=== PATIENT | male | born 1980 | race African-American/Black ===

== ENCOUNTER 2018-06-07 00:57 | Observation (INO) | payer BC ==
[2018-06-07] MEDS ORDERED: NA CHLORIDE 0.9% 1,000 ML ONE (01:36)
--- NOTE | 2018-06-07 02:02 | ER ---
Nurse's Notes [facility] Name: Prashanth Reardon Age: 37 yrs Sex: Male : 1980 Arrival Date: 06/07/2018 Time: 00:59 Bed 20 Private MD: Nixon Mayes Diagnosis: Multiple abscesses left groin. Failed outpatient therapy Presentation: 06/07 01:10 Presenting complaint: Patient states: he has a rash on his left groin since the first bb of Jun he was seen at [facility] on the and dx with bacterial folliculitis and given Mupirocin ointment but he is still having pain of 10/10. Transition of care: patient was not received from another setting of care. Onset of symptoms was June 02, 2018. Risk Assessment: Do you want to hurt yourself or someone else? Patient reports no desire to harm self or others. Initial Sepsis Screen: Does the patient meet any 2 criteria? No. Patient's initial sepsis screen is negative. Does the patient have a suspected source of infection? No. Patient's initial sepsis screen is negative. Care prior to arrival: None. 01:10 Method Of Arrival: Ambulatory bb 01:10 Acuity: SAMINA 5 bb Historical: - Allergies: 01:14 lisinopril; bb - Home Meds: 01:14 Unable to obtain [Active]; bb - PMHx: 01:14 Hypertension; Sleep Apnea; bb - PSHx: 01:14 None; bb - Immunization history:: Adult Immunizations unknown. - Social history:: Smoking status: Patient uses tobacco products, smokes one-half pack cigarettes per day, Patient uses alcohol, occasionally. street drugs, cocaine, phencyclidine. - Ebola Screening: : No symptoms or risks identified at this time. Screenin:17 Abuse screen: Denies threats or abuse. Nutritional screening: No deficits noted. ea Tuberculosis screening: No symptoms or risk factors identified. Fall Risk None identified. Assessment: 01:13 General: Appears uncomfortable, Behavior is appropriate for age. Pain: Complains of ea pain in groin, right femoral area and left femoral area. Neuro: Level of Consciousness is awake, alert, obeys commands, Oriented to person, place, time, situation. Cardiovascular: Patient's skin is warm and dry. Respiratory: Airway is patent Respiratory effort is even, unlabored, Respiratory pattern is regular, symmetrical. Derm: multiple ingrown hairs noted to groin area. 02:30 Reassessment: Patient and/or family updated on plan of care and expected duration. Pain ea level reassessed. Patient is alert, oriented x 3, equal unlabored respirations, skin warm/dry/pink. 03:24 Reassessment: Patient and/or family updated on plan of care and expected duration. Pain ea level reassessed. Patient is alert, oriented x 3, equal unlabored respirations, skin warm/dry/pink. 03:50 Reassessment: Report called to Avani TREJO on second floor. ea Vital Signs: 01:14 BP 136 / 97; Pulse 101; Resp 20 S; Temp 98.6(O); Pulse Ox 95% on R/A; Weight 167.83 kg bb (R); Height 6 ft. 2 in. (187.96 cm) (R); Pain 10/10; 02:45 BP 122 / 85; Pulse 76; Resp 20; Pulse Ox 97% ; ea 03:38 BP 140 / 76; Pulse 95; Resp 18 S; Temp 98; Pulse Ox 97% ; Pain 0/10; ea 01:14 Body Mass Index 47.50 (167.83 kg, 187.96 cm) bb ED Course: 00:59 Patient arrived in ED. am2 00:59 Nixon Mayes MD is Private Physician. am2 01:10 Jess Rene, NEIL is Primary Nurse. ea 01:12 Triage completed. bb 01:14 Arm band placed on Patient placed in an exam room, on a stretcher, on pulse oximetry. bb 01:17 Patient has correct armband on for positive identification. Bed in low position. Call ea light in reach. Side rails up X 1. 01:19 Marshal Cronin MD is Attending Physician. pkl 01:40 Inserted saline lock: 20 gauge in right antecubital area, using aseptic technique. ea Blood collected. 02:01 Terrance Varma MD is Hospitalizing Provider. pkl 03:27 No provider procedures requiring assistance completed. ea 03:36 Patient admitted, IV remains in place. ea Administered Medications: 01:54 Drug: NS 0.9% 1000 ml Route: IV; Rate: 1000 ml; Site: right antecubital; ea 03:24 Follow up: IV Status: Completed infusion; IV Intake: 1000ml ea 03:10 Drug: morphine 4 mg Route: IVP; Site: right antecubital; ea 04:01 Follow up: Response: No adverse reaction; Marked relief of symptoms; Pain is decreased ea 03:10 Drug: Zofran 4 mg Route: IVP; Site: right antecubital; ea 04:01 Follow up: Response: No adverse reaction; Marked relief of symptoms ea 03:23 Drug: Zosyn 3.375 grams Route: IVPB; Infused Over: 60 mins; Site: right forearm; ea 04:02 Follow up: Response: No adverse reaction; IV Status: Infusion continued upon admission ea Intake: 03:24 IV: 1000ml; Total: 1000ml. ea Outcome: 02:02 Decision to Hospitalize by Provider. pkl 03:31 Instructed on the need for admit. ea 03:37 Condition: stable ea 04:08 Admitted to Med/surg accompanied by nurse, room 210, with chart, Report called to Avani gomez RN on second floor 04:34 Patient left the ED. ea Signatures: Marshal Cronin MD MD pkl Ballard, Brenda, RN RN Penelope Devlin Elena RN RN patricia Corrections: (The following items were deleted from the chart) 03:29 02:00 Inserted saline lock: 20 gauge in right antecubital area, using aseptic ea technique. Blood collected. ea 03:50 03:38 BP 140 / 76; Pulse 95bpm; Resp 92bpm; Pulse Ox 97%; Temp 98F; Pain 0/10; ea ea
--- NOTE | 2018-06-07 02:02 | EDPHYS ---
Physician Documentation [facility] Name: Prashanth Reardon Age: 37 yrs Sex: Male : 1980 Arrival Date: 06/07/2018 Time: 00:59 Bed 20 Private MD: Nixon Mayes ED Physician Marshal Cronin HPI: 06/07 01:54 This 37 yrs old Black Male presents to ER via Ambulatory with complaints of Skin pkl Sore(s). 01:54 The patient presents with an abscess of the left groin. Description: fluctuant, pkl swollen, Multiple abscesses. Onset: The symptoms/episode began/occurred 1 week(s) ago. Seen at [facility] 5 days ago. Given antibiotic ointment. Not better.. Historical: - Allergies: 01:14 lisinopril; bb - Home Meds: :14 Unable to obtain [Active]; bb - PMHx: 01:14 Hypertension; Sleep Apnea; bb - PSHx: 01:14 None; bb - Immunization history:: Adult Immunizations unknown. - Social history:: Smoking status: Patient uses tobacco products, smokes one-half pack cigarettes per day, Patient uses alcohol, occasionally. street drugs, cocaine, phencyclidine. - Ebola Screening: : No symptoms or risks identified at this time. ROS: 01:54 Eyes: Negative for injury, pain, redness, and discharge, ENT: Negative for injury, pkl pain, and discharge, Neck: Negative for injury, pain, and swelling, Cardiovascular: Negative for chest pain, palpitations, and edema, Respiratory: Negative for shortness of breath, cough, wheezing, and pleuritic chest pain, Abdomen/GI: Negative for abdominal pain, nausea, vomiting, diarrhea, and constipation, Back: Negative for injury and pain, : Negative for injury, bleeding, discharge, and swelling, MS/Extremity: Negative for injury and deformity. 01:54 Skin: Positive for abscess, of the left groin. 01:54 Neuro: Negative for altered mental status. Exam: 01:54 Head/Face: Normocephalic, atraumatic. Eyes: Pupils equal round and reactive to light, pkl extra-ocular motions intact. Lids and lashes normal. Conjunctiva and sclera are non-icteric and not injected. Cornea within normal limits. Periorbital areas with no swelling, redness, or edema. ENT: Nares patent. No nasal discharge, no septal abnormalities noted. Tympanic membranes are normal and external auditory canals are clear. Oropharynx with no redness, swelling, or masses, exudates, or evidence of obstruction, uvula midline. Mucous membranes moist. Neck: Trachea midline, no thyromegaly or masses palpated, and no cervical lymphadenopathy. Supple, full range of motion without nuchal rigidity, or vertebral point tenderness. No Meningismus. Chest/axilla: Normal chest wall appearance and motion. Nontender with no deformity. No lesions are appreciated. Cardiovascular: Regular rate and rhythm with a normal S1 and S2. No gallops, murmurs, or rubs. Normal PMI, no JVD. No pulse deficits. Respiratory: Lungs have equal breath sounds bilaterally, clear to auscultation and percussion. No rales, rhonchi or wheezes noted. No increased work of breathing, no retractions or nasal flaring. Abdomen/GI: Soft, non-tender, with normal bowel sounds. No distension or tympany. No guarding or rebound. No evidence of tenderness throughout. Back: No spinal tenderness. No costovertebral tenderness. Full range of motion. 01:54 Skin: abscess, Multiple abscesses left groin. 01:54 Neuro: Orientation: is normal, Mentation: is normal, Cranial nerves: grossly normal, Motor: is normal. Vital Signs: 01:14 BP 136 / 97; Pulse 101; Resp 20 S; Temp 98.6(O); Pulse Ox 95% on R/A; Weight 167.83 kg bb (R); Height 6 ft. 2 in. (187.96 cm) (R); Pain 10/10; 02:45 BP 122 / 85; Pulse 76; Resp 20; Pulse Ox 97% ; ea 03:38 BP 140 / 76; Pulse 95; Resp 18 S; Temp 98; Pulse Ox 97% ; Pain 0/10; ea 01:14 Body Mass Index 47.50 (167.83 kg, 187.96 cm) bb MDM: 01:19 Patient medically screened. pk 02:00 Data reviewed: vital signs, nurses notes, lab test result(s). [facility] 06/07 01:29 Order name: CBC with Diff; Complete Time: 03:26 pk 06/07 01:29 Order name: Chem 7; Complete Time: 03:26 pkl Administered Medications: 01:54 Drug: NS 0.9% 1000 ml Route: IV; Rate: 1000 ml; Site: right antecubital; ea 03:24 Follow up: IV Status: Completed infusion; IV Intake: 1000ml ea 03:10 Drug: morphine 4 mg Route: IVP; Site: right antecubital; ea 04:01 Follow up: Response: No adverse reaction; Marked relief of symptoms; Pain is decreased ea 03:10 Drug: Zofran 4 mg Route: IVP; Site: right antecubital; ea 04:01 Follow up: Response: No adverse reaction; Marked relief of symptoms ea 03:23 Drug: Zosyn 3.375 grams Route: IVPB; Infused Over: 60 mins; Site: right forearm; ea 04:02 Follow up: Response: No adverse reaction; IV Status: Infusion continued upon admission ea Disposition: 06/07/18 02:02 Hospitalization ordered by Terrance Varma for Observation. Preliminary diagnosis is Multiple abscesses left groin. Failed outpatient therapy. - Bed requested for Telemetry/MedSurg (observation). - Status is Observation. ea - Condition is Stable. - Problem is new. - Symptoms are unchanged. UTI on Admission? No Signatures: Dispatcher [employer] EDMS Carter Krause rg2 Marshal Cronin MD MD pkl Ballard, Brenda, RN RN bb Antunez, Elena, RN RN ea Corrections: (The following items were deleted from the chart) 03:28 02:02 Hospitalization Ordered by Terrance Varma MD for Observation. Preliminary rg2 diagnosis is Multiple abscesses left groin. Failed outpatient therapy. Bed requested for Telemetry/MedSurg (observation). Status is Observation. Condition is Stable. Problem is new. Symptoms are unchanged. UTI on Admission? No. pkl 03:28 03:28 06/07/2018 02:02 Hospitalization Ordered by Terrance Varma MD for Observation. rg2 Preliminary diagnosis is Multiple abscesses left groin. Failed outpatient therapy. Bed requested for Telemetry/MedSurg (observation). Status is Observation. Condition is Stable. Problem is new. Symptoms are unchanged. UTI on Admission? No. rg2 04:34 03:28 06/07/2018 02:02 Hospitalization Ordered by Terrance Varma MD for Observation. ea Preliminary diagnosis is Multiple abscesses left groin. Failed outpatient therapy. Bed requested for Telemetry/MedSurg (observation). Status is Observation. Condition is Stable. Problem is new. Symptoms are unchanged. UTI on Admission? No. rg2
[2018-06-07 03:12] LABS: Absolute Monocytes 0.6 K/uL (0.1-1.3); Absolute Neutrophil 3.9 K/uL (1.8-8.0); Basophils % 0.4 % (0-1.3); Eosinophils % 4.5 % (0-4.4); Hematocrit 42.4 % (39.6-49.0); Lymphocytes % 29.7 % (15.3-44.8); MCH 31.8 pg (27.0-35.0); MCV 94.6 fL (80-100); MPV 9.5 fL (7.6-11.3); Monocytes % 8.2 % (3.3-12.3); RBC Red Blood Cell Count 4.48 M/uL (4.33-5.43)
[2018-06-07] MEDS ORDERED: ONDANSETRON 4 MG/2 ML VIAL ONE (03:12)
[2018-06-07] MEDS ORDERED: MORPHINE 4 MG/ML SYR ONE (03:12)
[2018-06-07] MEDS ORDERED: MORPHINE 4 MG/ML SYR IV PRN (03:12)
[2018-06-07] MEDS ORDERED: PIPER/TAZO/NS 3.375gm 3.375 GM/100 ML BAG ONE (03:13)
[2018-06-07 03:24] LABS: BUN Blood Urea Nitrogen 12 mg/dL (7-18); Bicarbonate 29 mmol/L (21-32); Glucose Level 96 mg/dL (74-106); Potassium 3.7 mmol/L (3.5-5.1); Sodium Level 145 mmol/L (136-145)
[2018-06-07] MEDS: D5 0.45 NS 1,000 ML IV SCH ×3 (05:15→21:08)
--- NOTE | 2018-06-07 16:55 | P.HP ---
Date of Service: 06/07/18 PC: This 37-year-old male presents emergency room with severe pain in his left scrotum and left lower anterior wall for diagnosis and treatment. HPC: Patient states that he has had numerous abscesses in this area for the last few months. States the had 1 on admission to the hospital. Apparently was admitted for IV antibiotics and surgical console. PMH: Borderline diabetes, sleep apnea. Was seen at another facility 5 days ago and had been on oral antibiotics at home. PSHx: Negative SOC: Allergic to lisinopril SYS REVIEW: No cough, wheeze, shortness of breath. Patient has severe sleep apnea. Needs an adjustment on his CPAP machine as well as a pulmonary consult as outpatient O/E wake alert vital signs are stay HEENT: Within normal limit Chest: Chest movement equal bilateral ABD: Soft LOCO: Intact GEN: Patient is hidradenitis and see the in and both his groins. He stated any an abscess on his left hemiscrotum last night however today there is nothing palpable there at the moment. DATA: Within normal limits IMPRESSION: Patient apparently has hidradenitis and had a cyst or an abscess on his left hemiscrotum. The wall of the skin is thickened benign in a Katalina abscess nor can the patient feel that area presents today. PLAN: Patient we kept on antibiotics, will give him analgesics, most likely discharge in a.m.. He will need a pulmonary console on discharge for his sleep apnea.
[2018-06-08] MEDS: D5 0.45 NS 1,000 ML IV SCH ×2 (05:07→11:19)
[2018-06-08] MEDS ORDERED: SMZ./TMP. 800/160 MG TABLET PO SCH (09:00)
== END 2018-06-08 15:44 | disposition home or self-care (01) ==
LOC: ER 00:57 → ERHOLD 03:10 → 2ND 03:32
PROVIDERS: ADMIT Surgery; ATTEND Surgery
DX: L73.2 Hidradenitis suppurativa (principal); N49.2 Inflammatory disorders of scrotum; R73.03 Prediabetes; G47.30 Sleep apnea, unspecified; I10 Essential (primary) hypertension; Z88.8 Allergy status to other drugs, medicaments and biological substances; F17.210 Nicotine dependence, cigarettes, uncomplicated
CPT/HCPCS: 36415; 80048; 85025; 96361; 96365; 96375; 99285; G0378; J2405; J2543; J7030

== ENCOUNTER 2018-10-03 01:45 | Emergency (ER) | payer BC ==
[2018-10-03] MEDS ORDERED: IBUPROFEN 400 MG TAB ONE (02:26)
[2018-10-03] MEDS ORDERED: IBUPROFEN 200 MG TAB PO ONE (02:26)
--- NOTE | 2018-10-03 04:41 | ER ---
Nurse's Notes [facility] Name: Prashanth Reardon Age: 37 yrs Sex: Male : 1980 Arrival Date: 10/03/2018 Time: 01:53 Bed 8 Private MD: Diagnosis: Acute upper respiratory infection, unspecified;Influenza due to other identified influenza virus Presentation: 10/03 02:05 Presenting complaint: Patient states: started 2 days ago body ache, cough with greenish rr5 phlegm, sore throat and clogged nose. Presenting complaint:. Transition of care: patient was not received from another setting of care. Onset of symptoms was October 01, 2018. Risk Assessment: Do you want to hurt yourself or someone else? Patient reports no desire to harm self or others. Initial Sepsis Screen: Does the patient meet any 2 criteria? No. Patient's initial sepsis screen is negative. Does the patient have a suspected source of infection? No. Patient's initial sepsis screen is negative. Care prior to arrival: Medication(s) given: mucinex, dayquil,nightquil,( amoxiclay?). 02:05 Method Of Arrival: Ambulatory rr5 02:05 Acuity: SAMINA 3 rr5 Triage Assessment: 02:12 General: Appears in no apparent distress. comfortable, Behavior is calm, cooperative, rr5 appropriate for age. Pain: Denies pain. EENT:. Historical: - Allergies: 02:59 Lisinopril; rr5 - Home Meds: 02:12 unable able to know the name for the HPN medication [Active]; rr5 - PMHx: 02:12 Gout; Hypertension; Sleep Apnea; rr5 - Immunization history:: Adult Immunizations not up to date, Flu vaccine is not up to date. - Social history:: Smoking status: Patient uses tobacco products, smokes one pack cigarettes per day. Patient/guardian denies using alcohol, street drugs. - Ebola Screening: : Patient negative for fever greater than or equal to 101.5 degrees Fahrenheit, and additional compatible Ebola Virus Disease symptoms Patient denies exposure to infectious person Patient denies travel to an Ebola-affected area in the 21 days before illness onset. Screenin:58 Abuse screen: Denies threats or abuse. Denies injuries from another. Nutritional rr5 screening: No deficits noted. Tuberculosis screening: No symptoms or risk factors identified. Fall Risk None identified. Assessment: 02:15 General: Appears in no apparent distress. comfortable, Behavior is calm, cooperative, rr5 appropriate for age. Pain: Denies pain. Neuro: Level of Consciousness is awake, alert, obeys commands. Cardiovascular: Capillary refill < 3 seconds Patient's skin is warm and dry. Respiratory: Airway is patent Respiratory effort is even, unlabored, Breath sounds are clear bilaterally. GI: No signs and/or symptoms were reported involving the gastrointestinal system. : No signs and/or symptoms were reported regarding the genitourinary system. EENT: Throat is reddened with gag reflex present. Derm: No signs and/or symptoms reported regarding the dermatologic system. Musculoskeletal: Capillary refill < 3 seconds, Range of motion: intact in all extremities. 03:00 Reassessment: awaiting for laboratory reports. rr5 04:00 Reassessment: Patient appears in no apparent distress at this time. Patient and/or rr5 family updated on plan of care and expected duration. Pain level reassessed. no complaints made. Patient states feeling better. Patient states symptoms have improved. 05:01 Reassessment: discharge instruction and prescription explained with no question ask. rr5 vitally stable. Vital Signs: 02:09 BP 129 / 82; Pulse 95; Resp 20; Temp 99; Pulse Ox 98% on R/A; Weight 165.56 kg; Height rr5 6 ft. 2 in. (187.96 cm); Pain 0/10; 03:00 BP 103 / 61; Pulse 92; Resp 17; Pulse Ox 98% on R/A; rr5 04:37 BP 110 / 69; Pulse 84; Resp 19; Pulse Ox 97% on R/A; rr5 02:09 Body Mass Index 46.86 (165.56 kg, 187.96 cm) rr5 ED Course: 01:53 Patient arrived in ED. es 01:59 Rashid Browning PA is PHCP. jmm 01:59 Ezekiel Castaneda MD is Attending Physician. jm 02:05 Rayray Carlos, NEIL is Primary Nurse. rr5 02:09 Triage completed. rr5 02:15 Patient has correct armband on for positive identification. rr5 02:15 Arm band placed on. rr5 02:30 Pulse ox on. NIBP on. rr5 04:14 Strep Sent. rr5 04:14 Influenza Screen (a \T\ B) Sent. rr5 05:02 No provider procedures requiring assistance completed. Patient did not have IV access rr5 during this emergency room visit. Administered Medications: 02:20 Drug: Motrin 600 mg Route: PO; rr5 04:52 Follow up: Response: No adverse reaction rr5 04:50 Drug: Tamiflu 75 mg Route: PO; rr5 04:52 Follow up: Response: Medication administered at discharge. rr5 Outcome: 04:40 Discharge ordered by . rn 05:02 Discharged to home ambulatory. rr5 05:02 Condition: stable 05:02 Discharge instructions given to patient, Instructed on discharge instructions, follow up and referral plans. medication usage, Demonstrated understanding of instructions, follow-up care, medications, Prescriptions given X 3. 05:03 Patient left the ED. rr5 Signatures: Rashid Browning PA PA jmm Salyer, Edna es Nieto, Roman, MD MD rn Roque, Raymond, RN RN rr5 Corrections: (The following items were deleted from the chart) 02:59 02:12 Allergies: NKA; rr5 rr5
--- NOTE | 2018-10-03 04:41 | EDPHYS ---
Physician Documentation [facility] Name: Prashanth Reardon Age: 37 yrs Sex: Male : 1980 Arrival Date: 10/03/2018 Time: 01:53 Bed 8 Private MD: ED Physician Ezekiel Castaneda HPI: 10/03 02:14 This 37 yrs old Black Male presents to ER via Ambulatory with complaints of Sore Throat.jmm 02:14 The patient presents with sore throat. Onset: The symptoms/episode began/occurred jmm gradually, 2 day(s) ago. Modifying factors: The symptoms are alleviated by nothing, the symptoms are aggravated by nothing. Associated signs and symptoms: Pertinent positives: cough, fever, Sore throat. This is a 37 year old male with a history of htn that presents to the ED with complaints of cough, congestion, fever, body aches, and sore throat. . Historical: - Allergies: 02:59 Lisinopril; rr5 - Home Meds: 02:12 unable able to know the name for the HPN medication [Active]; rr5 - PMHx: 02:12 Gout; Hypertension; Sleep Apnea; rr5 - Immunization history:: Adult Immunizations not up to date, Flu vaccine is not up to date. - Social history:: Smoking status: Patient uses tobacco products, smokes one pack cigarettes per day. Patient/guardian denies using alcohol, street drugs. - Ebola Screening: : Patient negative for fever greater than or equal to 101.5 degrees Fahrenheit, and additional compatible Ebola Virus Disease symptoms Patient denies exposure to infectious person Patient denies travel to an Ebola-affected area in the 21 days before illness onset. ROS: 02:14 Eyes: Negative for injury, pain, redness, and discharge. jmm 02:14 Constitutional: Positive for fever. 02:14 ENT: Positive for sinus congestion, sore throat. 02:14 Respiratory: Positive for cough. 02:14 All other systems are negative. Exam: 02:14 Constitutional: This is a well developed, well nourished patient who is awake, alert, jmm and in no acute distress. Head/Face: atraumatic. Eyes: EOMI, no conjunctival erythema appreciated 02:14 Cardiovascular: Regular rate and rhythm. No edema appreciated 02:14 ENT: Posterior pharynx: erythema, that is moderate. 02:14 Respiratory: the patient does not display signs of respiratory distress, Respirations: normal, Breath sounds: are clear throughout. 02:14 Back: ROM is normal. 02:14 Musculoskeletal/extremity: ROM: intact in all extremities. 02:14 Skin: Appearance: Color: normal in color. 02:14 Neuro: Orientation: is normal, Mentation: is normal, Memory: is normal, Gait: is steady. 02:14 Psych: Behavior/mood is pleasant, cooperative. Vital Signs: 02:09 BP 129 / 82; Pulse 95; Resp 20; Temp 99; Pulse Ox 98% on R/A; Weight 165.56 kg; Height rr5 6 ft. 2 in. (187.96 cm); Pain 0/10; 03:00 BP 103 / 61; Pulse 92; Resp 17; Pulse Ox 98% on R/A; rr5 04:37 BP 110 / 69; Pulse 84; Resp 19; Pulse Ox 97% on R/A; rr5 02:09 Body Mass Index 46.86 (165.56 kg, 187.96 cm) rr5 MDM: 02:13 Patient medically screened. [facility] 02:46 Data reviewed: vital signs, nurses notes. [facility] 03:00 Counseling: I had a detailed discussion with the patient and/or guardian regarding: the [facility] historical points, exam findings, and any diagnostic results supporting the discharge/admit diagnosis, the need for outpatient follow up, to return to the emergency department if symptoms worsen or persist or if there are any questions or concerns that arise at home. 03:02 Transition of care: After a detail discussion of the patient's case, care is [facility] transferred to Ezekiel Castaneda MD. 10/03 02:13 Order name: Influenza Screen (a \T\ B); Complete Time: 15:07 [facility] 10/03 02:13 Order name: Strep; Complete Time: 15:07 [facility] 10/03 04:36 Order name: Throat Culture EDMS Administered Medications: 02:20 Drug: Motrin 600 mg Route: PO; rr5 04:52 Follow up: Response: No adverse reaction rr5 04:50 Drug: Tamiflu 75 mg Route: PO; rr5 04:52 Follow up: Response: Medication administered at discharge. rr5 Disposition: 05:33 Co-signature as Attending Physician, Ezekiel Castaneda MD. rn Disposition: 10/03/18 04:40 Discharged to Home. Impression: Acute upper respiratory infection, unspecified, Influenza due to other identified influenza virus. - Condition is Stable. - Discharge Instructions: Upper Respiratory Infection, Adult, Influenza, Adult. - Prescriptions for Tessalon Perles 100 mg Oral Capsule - take 1 capsule by ORAL route every 8 hours As needed; 15 capsule. Albuterol Sulfate 90 mcg/actuation - inhale 1-2 puff by INHALATION route every 4-6 hours; 1 Inhaler. Tamiflu 75 mg Oral Capsule - take 1 tablet by ORAL route every 12 hours for 5 days; 10 tablet. - Medication Reconciliation Form, Thank You Letter, Antibiotic Education, Prescription Opioid Use, Work release form form. - Follow up: Private Physician; When: 2 - 3 days; Reason: Recheck today's complaints, Continuance of care, Re-evaluation by your physician. Signatures: Dispatcher [employer] EDMS Rashid Browning PA PA jmm Nieto, Roman, MD MD rn Roque, Raymond, RN RN rr5 Corrections: (The following items were deleted from the chart) 02:59 02:12 Allergies: NKA; rr5 rr5 05:03 04:40 10/03/2018 04:40 Discharged to Home. Impression: Acute upper respiratory rr5 infection, unspecified; Influenza due to other identified influenza virus. Condition is Stable. Discharge Instructions: Upper Respiratory Infection, Adult. Prescriptions for Tessalon Perles 100 mg Oral Capsule - take 1 capsule by ORAL route every 8 hours As needed; 15 capsule, Zithromax Z-Tato 250 mg Oral Tablet - take 1 tablet by ORAL route as directed for 5 days Day 1 - take two (2) tablets one time. Day 2, 3, 4 , 5 take one (1) tablet once daily.; 6 tablet, Albuterol Sulfate 90 mcg/actuation - inhale 1-2 puff by INHALATION route every 4-6 hours; 1 Inhaler. and Forms are Medication Reconciliation Form, Thank You Letter, Antibiotic Education, Prescription Opioid Use. Follow up: Private Physician; When: 2 - 3 days; Reason: Recheck today's complaints, Continuance of care, Re-evaluation by your physician. rn
[2018-10-03] MEDS ORDERED: OSELTAMIVIR 75 MG CAP ONE (04:50)
== END 2018-10-03 05:03 | disposition home or self-care (01) ==
LOC: ER 01:45
DX: J06.9 Acute upper respiratory infection, unspecified (principal); J10.1 Influenza due to other identified influenza virus with other respiratory manifestations; I10 Essential (primary) hypertension; F17.210 Nicotine dependence, cigarettes, uncomplicated; Z79.899 Other long term (current) drug therapy
CPT/HCPCS: 87070; 87081; 87804; 99284

== ENCOUNTER 2018-10-11 21:00 | Emergency (ER) | payer BC ==
[2018-10-11] MEDS ORDERED: NA CHLORIDE 0.9% 1,000 ML ONE (22:01)
[2018-10-11 22:14] LABS: Absolute Lymphocytes (CBC) 2.1 K/uL (0.7-4.9); Absolute Monocytes 0.7 K/uL (0.1-1.3); Absolute Neutrophil 4.8 K/uL (1.8-8.0); Basophils % 0.4 % (0-1.3); Eosinophils % 3.1 % (0-4.4); Hematocrit 43.3 % (39.6-49.0); Lymphocytes % 26.4 % (15.3-44.8); MCH 32.7 pg (27.0-35.0); MCV 95.1 fL (80-100); Monocytes % 9.1 % (3.3-12.3); RBC Red Blood Cell Count 4.56 M/uL (4.33-5.43)
[2018-10-11 22:15] LABS: Protime INR 1.07
[2018-10-11 22:24] LABS: ALT/SGPT 34 U/L (12-78); AST/SGOT 18 U/L (15-37); Albumin 3.6 g/dL (3.4-5.0); Alkaline Phosphatase 72 U/L (45-117); BUN Blood Urea Nitrogen 12 mg/dL (7-18); Bicarbonate 29 mmol/L (21-32); Bilirubin Direct < 0.1 mg/dL (0-0.2); Bilirubin Total 0.3 mg/dL (0.2-1.0); Glucose Level 93 mg/dL (74-106); Magnesium 1.9 mg/dL (1.8-2.4); Potassium 3.8 mmol/L (3.5-5.1); Protein, Total 7.6 g/dL (6.4-8.2); Sodium Level 143 mmol/L (136-145); Troponin (Emerg Dept Use Only) < 0.02 ng/mL (0.0-0.045)
[2018-10-11 22:27] LABS: NT PRO-BNP < 5 pg/mL (<125)
[2018-10-11] MEDS ORDERED: KETOROLAC 30 MG/ML INJ ONE (22:43)
--- NOTE | 2018-10-11 23:08 | EDPHYS ---
Physician Documentation [facility] Name: Prashanth Reardon Age: 37 yrs Sex: Male : 1980 Arrival Date: 10/11/2018 Time: 21:01 Bed 14 Private MD: ED Physician Haja Mendez HPI: 10/11 21:37 This 37 yrs old Black Male presents to ER via Ambulatory with complaints of Headache. kav 21:45 The patient complains of pain to the left side of the back of head, left occipital kav area, left base of the skull, right side of the back of head, right occipital area and right base of the skull. Onset: The symptoms/episode began/occurred acutely. Associated signs and symptoms: Pertinent positives:. 21:51 The patient describes the headache as intermittent. Severity of symptoms: At its worst kav the pain was moderate, this morning. Headache History: The patient has had previous headaches and this one is similar to previous episodes. The symptoms are alleviated by nothing. the symptoms are aggravated by "not taking blood pressure medication". The patient has not recently seen a physician. Patient reports that he has not been taking his blood pressure medication as prescribed. Historical: - Allergies: 21:20 Lisinopril; aj1 - Home Meds: 21:20 amlodipine 10 mg tab 1 tab once daily [Active]; aj1 - PMHx: 21:20 Gout; Hypertension; Sleep Apnea; frank's palsy; aj1 - PSHx: 21:20 None; aj1 - Immunization history:: Flu vaccine is not up to date. - Social history:: Smoking status: Patient uses tobacco products, smokes one-half pack cigarettes per day. - Ebola Screening: : Patient denies travel to an Ebola-affected area in the 21 days before illness onset. - Family history:: not pertinent. - Hospitalizations: : No recent hospitalization is reported. ROS: 21:52 Constitutional: Negative for fever, chills, and weight loss, Eyes: Negative for injury, kav pain, redness, and discharge, ENT: Negative for injury, pain, and discharge, Neck: Negative for injury, pain, and swelling, Cardiovascular: Negative for chest pain, palpitations, and edema, Respiratory: Negative for shortness of breath, cough, wheezing, and pleuritic chest pain, Abdomen/GI: Negative for abdominal pain, nausea, vomiting, diarrhea, and constipation, Back: Negative for injury and pain, : Negative for injury, bleeding, discharge, and swelling, MS/Extremity: Negative for injury and deformity, Skin: Negative for injury, rash, and discoloration, Psych: Negative for depression, anxiety, suicide ideation, homicidal ideation, and hallucinations, Allergy/Immunology: Negative for hives, rash, and allergies, Endocrine: Negative for neck swelling, polydipsia, polyuria, polyphagia, and marked weight changes, Hematologic/Lymphatic: Negative for swollen nodes, abnormal bleeding, and unusual bruising. 21:52 Neuro: Positive for headache, Negative for dizziness, gait disturbance, loss of consciousness, numbness, tingling, visual changes. Exam: 21:52 Constitutional: This is a well developed, well nourished patient who is awake, alert, kav and in no acute distress. Head/Face: Normocephalic, atraumatic. Eyes: Pupils equal round and reactive to light, extra-ocular motions intact. Lids and lashes normal. Conjunctiva and sclera are non-icteric and not injected. Cornea within normal limits. Periorbital areas with no swelling, redness, or edema. ENT: Nares patent. No nasal discharge, no septal abnormalities noted. Tympanic membranes are normal and external auditory canals are clear. Oropharynx with no redness, swelling, or masses, exudates, or evidence of obstruction, uvula midline. Mucous membranes moist. Neck: Trachea midline, no thyromegaly or masses palpated, and no cervical lymphadenopathy. Supple, full range of motion without nuchal rigidity, or vertebral point tenderness. No Meningismus. Chest/axilla: Normal chest wall appearance and motion. Nontender with no deformity. No lesions are appreciated. Cardiovascular: Regular rate and rhythm with a normal S1 and S2. No gallops, murmurs, or rubs. Normal PMI, no JVD. No pulse deficits. Respiratory: Lungs have equal breath sounds bilaterally, clear to auscultation and percussion. No rales, rhonchi or wheezes noted. No increased work of breathing, no retractions or nasal flaring. Abdomen/GI: Soft, non-tender, with normal bowel sounds. No distension or tympany. No guarding or rebound. No evidence of tenderness throughout. Back: No spinal tenderness. No costovertebral tenderness. Full range of motion. Skin: Warm, dry with normal turgor. Normal color with no rashes, no lesions, and no evidence of cellulitis. MS/ Extremity: Pulses equal, no cyanosis. Neurovascular intact. Full, normal range of motion. Psych: Awake, alert, with orientation to person, place and time. Behavior, mood, and affect are within normal limits. 21:52 Neuro: Orientation: is normal, appropriate for stated age, no acute changes, to person, place \\T\\ time. Mentation: is normal, appropriate for stated age, no acute changes, responsive to voice lucid, able to follow commands, Memory: is normal, appropriate for stated age, no acute changes, Cranial nerves: grossly normal, is grossly normal based on the patient's age, no acute changes, CN II- XII are normal as tested, visual cox are intact. Funduscopic exam reveals no obvious abnormalities, discs that are sharp, extraocular movements are intact, Facial palsy and sensory deficits are absent. no gross hearing deficit,. Nystagmus is absent. Speech is clear and appropriate. Gag reflex present. Tongue strength is normal, Cerebellar function: is grossly normal, is grossly normal based on the patient's age, no acute changes, normal finger to nose testing, Motor: is normal, Sensation: is normal, Deep tendon reflexes are normal, Babinski testing is normal, seizure activity, is not displayed by the patient, Abnormal movements: there are no abnormal movements. Vital Signs: 21:20 BP 146 / 91; Pulse 107; Resp 20; Temp 97.8; Pulse Ox 98% on R/A; Weight 165.56 kg (R); aj1 Height 6 ft. 2 in. (187.96 cm) (R); 22:06 BP 133 / 87; Pulse 104; Resp 18; Pulse Ox 99% on R/A; tl2 23:43 BP 111 / 60; Pulse 98; Resp 20; Pulse Ox 96% on R/A; tl2 21:20 Body Mass Index 46.86 (165.56 kg, 187.96 cm) aj1 Flaco Coma Score: 21:52 Eye Response: spontaneous(4). Verbal Response: oriented(5). Motor Response: obeys kav commands(6). Total: 15. MDM: 21:28 Medical screening is not applicable. kav 21:52 Differential diagnosis: cluster headache, hypertensive headache, tension headache, kav vasomotor headache. Data reviewed: vital signs, nurses notes. 10/11 21:43 Order name: Influenza Screen (a \\T\\ B); Complete Time: 23:00 kav 10/11 21:44 Order name: CBC with Diff; Complete Time: 22:29 kav 10/11 21:44 Order name: CMP; Complete Time: 22:29 kav 10/11 21:45 Order name: Basic Metabolic Panel kav 10/11 21:45 Order name: LFT's; Complete Time: 22:29 kav 10/11 21:45 Order name: Magnesium; Complete Time: 22:29 kav 10/11 21:45 Order name: NT PRO-BNP; Complete Time: 22:29 kav 10/11 21:45 Order name: PT-INR; Complete Time: 22:29 kav 10/11 21:45 Order name: Troponin (emerg Dept Use Only); Complete Time: 22:29 kav 10/11 21:45 Order name: XRAY Chest (1 view) kav 10/11 21:45 Order name: EKG; Complete Time: 21:46 kav 10/11 21:45 Order name: Cardiac monitoring; Complete Time: 22:06 kav 10/11 21:45 Order name: EKG - Nurse/Tech; Complete Time: 22:01 kav 10/11 21:45 Order name: IV Saline Lock; Complete Time: 21:56 kav 10/11 21:45 Order name: Labs collected and sent; Complete Time: 21:56 kav 10/11 21:45 Order name: O2 Per Protocol; Complete Time: 21:55 kav 10/11 21:45 Order name: O2 Sat Monitoring; Complete Time: 21:55 kav Administered Medications: 21:55 Drug: NS 0.9% 1000 ml Route: IV; Rate: 1000 ml; Site: right antecubital; tl2 22:36 Drug: TORadol 30 mg Route: IVP; Site: left antecubital; tl2 23:26 Follow up: Response: No adverse reaction; Pain is decreased tl2 23:26 Drug: Tylenol 650 mg Route: PO; tl2 23:27 Follow up: Response: No adverse reaction; Medication administered at discharge. tl2 Disposition: 10/12 06:44 Co-signature as Attending Physician, Haja Mendez MD I agree with the assessment and nahomi plan of care. Disposition: 10/11/18 23:07 Discharged to Home. Impression: Hypertensive Headache, Headache. - Condition is Stable. - Discharge Instructions: Hypertension, General Headache Without Cause, [id number]. - Prescriptions for Ibuprofen 800 mg Oral Tablet - take 1 tablet by ORAL route every 8 hours As needed take with food; 30 tablet. - Medication Reconciliation Form, Thank You Letter form. - Follow up: Private Physician; When: 5 - 6 days; Reason: Recheck today's complaints, Continuance of care, Re-evaluation by your physician. - Problem is new. - Symptoms have improved. - Notes: take your blood pressure medication as prescribed and do not skip any doses of your blood pressure medication Signatures: Dispatcher [employer] EDBrittany Recinos, RN RN Haja Vann MD MD cha Vern, Katherine, SUPERVISOR ADULT EDUCATION SUPERVISOR ADULT EDUCATION Marie Coyle RN RN tl2 Corrections: (The following items were deleted from the chart) 10/11 23:05 21:51 The patient has not experienced similar symptoms in the past, megan guzman 23:45 23:07 10/11/2018 23:07 Discharged to Home. Impression: Hypertensive Headache; Headache. tl2 Condition is Stable. Forms are Medication Reconciliation Form, Thank You Letter, Antibiotic Education, Prescription Opioid Use. Follow up: Private Physician; When: 5 - 6 days; Reason: Recheck today's complaints, Continuance of care, Re-evaluation by your physician. Problem is new. Symptoms have improved. kaart
--- NOTE | 2018-10-11 23:08 | ER ---
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 I took my blood pressure medicine, but it stayed like that for hours. It finally came back down so they sent me back to work. Ever since then my body doesn't feel right. My head hurts.". Transition of care: patient was not received from another setting of care. Onset of symptoms was October 11, 2018. Risk Assessment: Do you want to hurt yourself or someone else? Patient reports no desire to harm self or others. Initial Sepsis Screen: Does the patient meet any 2 criteria? HR > 90 bpm. No. Patient's initial sepsis screen is negative. Does the patient have a suspected source of infection? No. Patient's initial sepsis screen is negative. Care prior to arrival: None. 21:16 Method Of Arrival: Ambulatory [facility] 21:16 Acuity: SAMINA 4 aj1 Triage Assessment: 21:20 Headache History: The patient has had previous headaches and this one is similar to aj1 previous episodes. General: Appears in no apparent distress. uncomfortable, Behavior is calm, cooperative, appropriate for age. Pain: Complains of pain in right temporal area Pain currently is 9 out of 10 on a pain scale. Pain began 12 hours ago Also complains of no other associated symptoms. Neuro: Level of Consciousness is awake, alert, obeys commands, Oriented to person, place, time, situation, Moves all extremities. Full function Gait is steady, Speech is normal, Facial symmetry appears normal, Reports headache Denies weakness blurred vision dizziness. Cardiovascular: Patient's skin is warm and dry. Respiratory: Airway is patent Respiratory effort is even, unlabored, Respiratory pattern is regular, symmetrical. Historical: - Allergies: 21:20 Lisinopril; aj1 - Home Meds: 21:20 amlodipine 10 mg tab 1 tab once daily [Active]; aj1 - PMHx: 21:20 Gout; Hypertension; Sleep Apnea; frank's palsy; aj1 - PSHx: 21:20 None; aj1 - Immunization history:: Flu vaccine is not up to date. - Social history:: Smoking status: Patient uses tobacco products, smokes one-half pack cigarettes per day. - Ebola Screening: : Patient denies travel to an Ebola-affected area in the 21 days before illness onset. - Family history:: not pertinent. - Hospitalizations: : No recent hospitalization is reported. Screenin:06 Abuse screen: Denies threats or abuse. Nutritional screening: No deficits noted. tl2 Tuberculosis screening: No symptoms or risk factors identified. Fall Risk None identified. Assessment: 22:06 General: Appears in no apparent distress. uncomfortable, Behavior is cooperative, tl2 appropriate for age, anxious. Pain: Complains of pain in right base of the skull and right occipital area Pain does not radiate. Neuro: Level of Consciousness is awake, alert, obeys commands, Oriented to person, place, time, situation. Neuro: Moves all extremities. Speech is normal, Facial symmetry appears normal. Cardiovascular: Denies chest pain. Respiratory: Airway is patent Respiratory effort is even, unlabored, Respiratory pattern is regular, symmetrical. GI: No signs and/or symptoms were reported involving the gastrointestinal system. : No signs and/or symptoms were reported regarding the genitourinary system. Derm: Skin is pink, warm \\T\\ dry. 23:43 Reassessment: Patient appears in no apparent distress at this time. Patient and/or tl2 family updated on plan of care and expected duration. Pain level reassessed. Patient is alert, oriented x 3, equal unlabored respirations, skin warm/dry/pink. pt verbalized understanding of discharge instructions, need for follow up and prescription usage. Vital Signs: 21:20 BP 146 / 91; Pulse 107; Resp 20; Temp 97.8; Pulse Ox 98% on R/A; Weight 165.56 kg (R); aj1 Height 6 ft. 2 in. (187.96 cm) (R); 22:06 BP 133 / 87; Pulse 104; Resp 18; Pulse Ox 99% on R/A; tl2 23:43 BP 111 / 60; Pulse 98; Resp 20; Pulse Ox 96% on R/A; tl2 21:20 Body Mass Index 46.86 (165.56 kg, 187.96 cm) aj1 Flaco Coma Score: 21:52 Eye Response: spontaneous(4). Verbal Response: oriented(5). Motor Response: obeys kav commands(6). Total: 15. ED Course: 21:01 Patient arrived in ED. ag3 21:06 Patient's name was called from ER lobby. No response. aj1 21:19 Triage completed. aj1 21:20 Arm band placed on Patient placed in an exam room. aj1 21:28 Malina Ambrocio FNP is PHCP. kav 21:28 Haja Mendez MD is Attending Physician. kav 22:00 Inserted saline lock: 22 gauge in right antecubital area, using aseptic technique. tl2 Blood collected. 22:00 IV IV in R AC appears to have infiltrated. IV removed. IV discontinued, intact, tl2 bleeding controlled, No redness/swelling at site. Pressure dressing applied. 22:05 Marie Titus RN is Primary Nurse. tl2 22:06 Patient has correct armband on for positive identification. Bed in low position. Call tl2 light in reach. Side rails up X 1. 22:14 XRAY Chest (1 view) In Process Unspecified. EDMS 22:16 Inserted saline lock: 20 gauge in left antecubital area, using aseptic technique. tl2 placed by NEIL Betts. 23:43 No provider procedures requiring assistance completed. IV discontinued, intact, tl2 bleeding controlled, No redness/swelling at site. Pressure dressing applied. Administered Medications: 21:55 Drug: NS 0.9% 1000 ml Route: IV; Rate: 1000 ml; Site: right antecubital; tl2 22:36 Drug: TORadol 30 mg Route: IVP; Site: left antecubital; tl2 23:26 Follow up: Response: No adverse reaction; Pain is decreased tl2 23:26 Drug: Tylenol 650 mg Route: PO; tl2 23:27 Follow up: Response: No adverse reaction; Medication administered at discharge. tl2 Outcome: 23:07 Discharge ordered by . kav 23:43 Discharged to home ambulatory. tl2 23:43 Condition: stable 23:43 Discharge instructions given to patient, Instructed on discharge instructions, follow up and referral plans. medication usage, Demonstrated understanding of instructions, follow-up care, medications, Prescriptions given X 1. 23:45 Patient left the ED. tl2 Signatures: Dispatcher [employer] Brittany Carcamo RN RN aj1 Malina Ambrocio, TELEPHONIC RN TELEPHONIC RN Marie Coyle RN RN tl2 Pita Flor ag3
[2018-10-11] MEDS ORDERED: ACETAMINOPHEN 325 MG TABLET ONE (23:29)
--- NOTE | 2018-10-12 05:46 | EKG ---
Test Date: 2018-10-11 Test Time: 22:01:14 Asbestos Siding Mechanic: KEMI MEASUREMENT RESULTS: Intervals: Rate: 102 FL: 148 QRSD: 94 QT: 328 QTc: 427 [place]ard: P: 41 FL: 148 QRS: 13 T: 27 INTERPRETIVE STATEMENTS: Sinus tachycardia Cannot rule out Anterior infarct, age undetermined Abnormal ECG Compared to ECG 10/06/2013 23:04:20 Left ventricular hypertrophy no longer present Myocardial infarct finding still present Electronically Signed On 10-12-18 05:45:15 WASHERY BOSS by Reyes Everett
--- NOTE | 2018-10-12 08:22 | RAD REPORT ---
EXAM DESCRIPTION: Gerardo Single View10/11/2018 10:14 pm CLINICAL HISTORY: Cough COMPARISON: none FINDINGS: The lungs appear clear of acute infiltrate. The heart is normal size IMPRESSION: No acute abnormalities displayed
== END 2018-10-11 23:45 | disposition home or self-care (01) ==
LOC: ER 21:00
DX: I67.4 Hypertensive encephalopathy (principal); I10 Essential (primary) hypertension; F17.210 Nicotine dependence, cigarettes, uncomplicated; Z88.8 Allergy status to other drugs, medicaments and biological substances
CPT/HCPCS: 36415; 71045; 80053; 82248; 83735; 83880; 84484; 85025; 85610; 87804; 93005; 96374; 99284; J7030

== ENCOUNTER 2019-02-08 09:02 | Emergency (ER) | payer BC ==
--- OUTSIDE RECORDS SUMMARY | 2019-02-08 09:04 | XMS REPORT ---
:1980 [facility] Address [address] [place] [address] Care Team Providers Name Role Phone Unavailable Unavailable Unavailable Payers Payer Name Policy Type Policy Number Effective Date Expiration Date Problems This patient has no known problems. Allergies, Adverse Reactions, Alerts Allergy Name Allergy Status Severity Reaction(s) Onset Inactive Treating Comments Type Date Date Clinician lisinopril DA Active SV 2018-06 00:00:0 0 Medications This patient has no known medications.
--- NOTE | 2019-02-08 10:42 | RAD REPORT ---
EXAM DESCRIPTION: RAD - Chest Single View - 02/08/2019 10:20 am CLINICAL HISTORY: CHEST PAIN Chest pain. COMPARISON: Chest Single View dated 10/11/2018; CHEST SINGLE VIEW dated 10/06/2013; CHEST SINGLE VIEW dated 08/23/2008 FINDINGS: Portable technique limits examination quality. The lungs are grossly clear. The heart is normal in size. No displaced fractures. IMPRESSION: No acute intrathoracic process suspected.
--- NOTE | 2019-02-08 10:44 | ER ---
Nurse's Notes [facility] Name: Prashanth Reardon Age: 38 yrs Sex: Male : 1980 Arrival Date: 02/08/2019 Time: 09:04 Bed 16 Private MD: Nixon Mayes Diagnosis: Headache;Chest pain, unspecified Presentation: 02/08 09:09 Presenting complaint: Patient states: frontal headache and left-sided chest pain that aa5 began 2-3 days ago. Pt denies cough, denies congestion. Reports diarrhea x 2-3 days ago, denies vomiting. Transition of care: patient was not received from another setting of care. Onset of symptoms was January 2019. Risk Assessment: Do you want to hurt yourself or someone else? Patient reports no desire to harm self or others. Initial Sepsis Screen: Does the patient meet any 2 criteria? No. Patient's initial sepsis screen is negative. Does the patient have a suspected source of infection? No. Patient's initial sepsis screen is negative. Care prior to arrival: None. 09:09 Method Of Arrival: Ambulatory aa5 09:09 Acuity: SAMINA 3 aa5 Triage Assessment: 09:14 Headache History: The patient has had previous headaches and this one is similar to tw2 previous episodes. Pain: Pain began 2-3 days ago. Also complains of no other associated symptoms. Neuro: Reports headache. 09:15 Pain: Pain currently is 8 out of 10 on a pain scale. tw2 Historical: - Allergies: 09:10 Lisinopril; aa5 - Home Meds: 09:10 amlodipine 10 mg tab 1 tab once daily [Active]; aa5 - PMHx: 09:10 Martin's Palsy; Gout; Hypertension; Sleep Apnea; aa5 - PSHx: 09:10 None; aa5 - Immunization history:: Flu vaccine is not up to date. - Social history:: Smoking status: Patient uses tobacco products, denies chronic smoking, but will smoke occasionally. - Ebola Screening: : No symptoms or risks identified at this time. - Family history:: not pertinent. - Hospitalizations: : No recent hospitalization is reported. Screenin:14 Abuse screen: Denies threats or abuse. Nutritional screening: No deficits noted. tw2 Tuberculosis screening: No symptoms or risk factors identified. Fall Risk None identified. Assessment: 09:33 General: Appears in no apparent distress. obese, Behavior is calm, cooperative, tw2 appropriate for age. Pain: Complains of pain in chest. Neuro: Level of Consciousness is awake, alert, obeys commands, Oriented to person, place, time, situation. Cardiovascular: Reports chest pain, Denies shortness of breath, Heart tones S1 S2 Patient's skin is warm and dry. Respiratory: Airway is patent Respiratory effort is even, unlabored, Respiratory pattern is regular, symmetrical, Breath sounds are clear bilaterally. GI: Abdomen is round non-distended, obese, Bowel sounds present X 4 quads. : No signs and/or symptoms were reported regarding the genitourinary system. EENT: No signs and/or symptoms were reported regarding the EENT system. Derm: No signs and/or symptoms reported regarding the dermatologic system. Musculoskeletal: Range of motion: intact in all extremities. 10:29 Reassessment: Patient appears in no apparent distress at this time. No changes from tw2 previously documented assessment. Patient and/or family updated on plan of care and expected duration. Pain level reassessed. Patient is alert, oriented x 3, equal unlabored respirations, skin warm/dry/pink. pt is snoring at this time. Vital Signs: 09:11 BP 126 / 88; Pulse 98; Resp 18 S; Temp 97.6(TE); Pulse Ox 99% on R/A; Weight 167.83 kg aa5 (R); Height 6 ft. 2 in. (187.96 cm) (R); Pain 8/10; 10:47 BP 127 / 83; Pulse 89; Resp 17; Pulse Ox 98% on R/A; tw2 09:11 Body Mass Index 47.50 (167.83 kg, 187.96 cm) aa5 ED Course: 09:04 Patient arrived in ED. rg4 09:04 Nixon Mayes MD is Private Physician. rg4 09:09 Arm band placed on. aa5 09:10 Triage completed. aa5 09:13 Ezekiel Castaneda MD is Attending Physician. rn 09:13 Tania Segovia RN is Primary Nurse. tw2 09:14 Bed in low position. Call light in reach. monitoring and evaluation advisor on. Pulse ox on. NIBP on. tw2 09:31 EKG done, by technology manager. reviewed by Ezekiel Castaneda MD. at1 10:20 X-ray completed. Portable x-ray completed in exam room. Patient tolerated procedure jb2 well. 10:21 XRAY Chest (1 view) In Process Unspecified. EDMS 10:47 No provider procedures requiring assistance completed. Patient did not have IV access tw2 during this emergency room visit. Administered Medications: No medications were administered Outcome: 10:43 Discharge ordered by . rn 10:47 Discharged to home ambulatory. tw2 10:47 Condition: stable 10:47 Discharge instructions given to patient, Instructed on discharge instructions, follow up and referral plans. Demonstrated understanding of instructions, follow-up care. 10:47 Patient left the ED. tw2 Signatures: Dispatcher [employer] EDMS Stephon Villavicencio jb2 Ezekiel Castaneda MD MD rn Sheree Campuzano RN RN aa5 Penelope Benitez, pump operator EKG Tat1 Tania Segovia RN RN tw2 Mimi Valdez rg4
--- NOTE | 2019-02-08 10:44 | EDPHYS ---
Physician Documentation [facility] Name: Prashanth Reardon Age: 38 yrs Sex: Male : 1980 Arrival Date: 02/08/2019 Time: 09:04 Bed 16 Private MD: Nixon Mayes ED Physician Ezekiel Castaneda HPI: 02/08 09:57 This 38 yrs old Black Male presents to ER via Ambulatory with complaints of Headache, rn Chest Pain. 09:58 The patient or guardian reports chest pain that is located primarily in the anterior rn chest wall, left. The pain does not radiate. Associated signs and symptoms: Pertinent positives: headache, Pertinent negatives: cough, diaphoresis, dizziness, lightheadedness, near syncope, palpitations, recent travel, shortness of breath, syncope, vomiting. The chest pain is described as aching. Duration: The patient or guardian reports multiple episodes, that are intermittent. Modifying factors: The symptoms are alleviated by remaining still, the symptoms are aggravated by movement, palpation of area, twisting torso. Severity of pain: At its worst the pain was mild in the emergency department the pain is unchanged. The patient has not experienced similar symptoms in the past. Reports headache and chest pain, for a few days, no fever/cough, reports chronic allergies and sinus problems, no focal neurological problems, reports achy left anterior chest with movement of arm and palpation, no rash or masses, no trauma. . 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 - Social history:: Smoking status: Patient uses tobacco products, denies chronic smoking, but will smoke occasionally. - Ebola Screening: : No symptoms or risks identified at this time. - Family history:: not pertinent. - Hospitalizations: : No recent hospitalization is reported. ROS: 09:58 Constitutional: Negative for fever, chills, and weight loss, Eyes: Negative for injury, rn pain, redness, and discharge, Neck: Negative for injury, pain, and swelling, Cardiovascular: + chest pain Respiratory: Negative for shortness of breath, cough, wheezing, and pleuritic chest pain, Abdomen/GI: Negative for abdominal pain, nausea, vomiting, diarrhea, and constipation, MS/Extremity: Negative for injury and deformity, Skin: Negative for injury, rash, and discoloration, Neuro: + headache, no focal weakness or numbness Exam: 09:58 Constitutional: This is a well developed, well nourished patient who is awake, alert, rn and in no acute distress. Has a drink from [employer]ic. Head/Face: Normocephalic, atraumatic. Eyes: Pupils equal round and reactive to light, extra-ocular motions intact. Lids and lashes normal. Conjunctiva and sclera are non-icteric and not injected. Cornea within normal limits. Periorbital areas with no swelling, redness, or edema. ENT: + mild nasal congestion, no stridor, no oral swelling Chest/axilla: + reproducible left anterior chest wall tenderness, no masses, no swelling, no crepitus, no fluctuance. Cardiovascular: Regular rate and rhythm with a normal S1 and S2. No gallops, murmurs, or rubs. Normal PMI, no JVD. No pulse deficits. Respiratory: Lungs have equal breath sounds bilaterally, clear to auscultation. No rales, rhonchi or wheezes noted. No increased work of breathing, no retractions or nasal flaring. Abdomen/GI: soft, non-tender MS/ Extremity: Pulses equal, no cyanosis. Neurovascular intact. Full, normal range of motion. Equal circumference. Neuro: Awake and alert, GCS 15, oriented to person, place, time, and situation. Cranial nerves II-XII grossly intact. Motor strength 5/5 in all extremities. Sensory grossly intact. Cerebellar exam normal. 10:14 ECG was reviewed by the Attending Physician. rn Vital Signs: 09:11 BP 126 / 88; Pulse 98; Resp 18 S; Temp 97.6(TE); Pulse Ox 99% on R/A; Weight 167.83 kg aa5 (R); Height 6 ft. 2 in. (187.96 cm) (R); Pain 8/10; 10:47 BP 127 / 83; Pulse 89; Resp 17; Pulse Ox 98% on R/A; tw2 09:11 Body Mass Index 47.50 (167.83 kg, 187.96 cm) aa5 MDM: 09:13 Patient medically screened. rn 10:42 Differential diagnosis: chest wall pain, costochondritis, pleurisy, pneumothorax. Data rn reviewed: vital signs, nurses notes, EKG, radiologic studies, plain films, and as a result, I will discharge patient. Counseling: I had a detailed discussion with the patient and/or guardian regarding: the historical points, exam findings, and any diagnostic results supporting the discharge/admit diagnosis, lab results, radiology results, the need for outpatient follow up, to return to the emergency department if symptoms worsen or persist or if there are any questions or concerns that arise at home. Special discussion: Based on the patient's history, exam, and Dx evaluation, there is no indication for emergent intervention or inpatient Tx. It is understood by the patient/guardian that if the Sx's persist or worsen they need to return immediately for re-evaluation. I discussed with the patient/guardian in detail that at this point there is no indication for admission to the hospital. It is understood, however, that if the symptoms persist or worsen the patient needs to return immediately for re-evaluation. 02/08 09:22 Order name: XRAY Chest (1 view); Complete Time: 10:42 rn 02/08 09:22 Order name: EKG; Complete Time: : rn 02/08 09:22 Order name: EKG - Nurse/Tech; Complete Time: 09:24 rn EC:14 Rate is 92 beats/min. Rhythm is regular. QRS [place] is Normal. NH interval is normal. QT rn interval is normal. No Q waves. T waves are Normal. No ST changes noted. Clinical impression: NSR w/ Non-specific ST/T Changes. Interpreted by me. Administered Medications: No medications were administered Disposition: 02/08/19 10:43 Discharged to Home. Impression: Headache, Chest pain, unspecified. - Condition is Stable. - Discharge Instructions: Chest Wall Pain. - Medication Reconciliation Form, Thank You Letter, Antibiotic Education, Prescription Opioid Use, Work release form form. - Follow up: Private Physician; When: As needed; Reason: Recheck today's complaints, Re-evaluation by your physician. - Problem is new. - Symptoms have improved. Signatures: Dispatcher [employer] EDEzekiel Arroyo MD MD rn Calderon Sheree, RN RN aa5 Tania Segovia RN RN tw2 Corrections: (The following items were deleted from the chart) 10:47 10:43 02/08/2019 10:43 Discharged to Home. Impression: Headache; Chest pain, tw2 unspecified. Condition is Stable. Forms are Work release form, Medication Reconciliation Form, Thank You Letter, Antibiotic Education, Prescription Opioid Use. Follow up: Private Physician; When: As needed; Reason: Recheck today's complaints, Re-evaluation by your physician. Problem is new. Symptoms have improved. rn
--- NOTE | 2019-02-08 11:42 | EKG ---
Test Date: 2019-02-08 Test Time: 09:27:41 Erosion Control Coordinator: OZZIE MEASUREMENT RESULTS: Intervals: Rate: 92 PA: 132 QRSD: 92 QT: 342 QTc: 422 [place]: P: 25 PA: 132 QRS: 31 T: 6 INTERPRETIVE STATEMENTS: Normal sinus rhythm Inferior infarct, age undetermined Abnormal ECG Compared to ECG 10/11/2018 22:01:14 Sinus tachycardia no longer present Myocardial infarct finding still present Electronically Signed On 02-08-19 09:57:00 CDT by Reyes Everett
== END 2019-02-08 10:47 | disposition home or self-care (01) ==
LOC: ER 09:02
DX: R07.9 Chest pain, unspecified (principal); R51 Headache; M10.9 Gout, unspecified; I10 Essential (primary) hypertension
CPT/HCPCS: 71045; 93005; 99284

== ENCOUNTER 2019-03-15 13:12 | Emergency (ER) | payer BC ==
--- OUTSIDE RECORDS SUMMARY | 2019-03-15 13:16 | XMS REPORT ---
:1980 [facility] Address [address] [place] [address] [address] [place] [address] Care Team Providers Name Role Phone Unavailable [...]
--- NOTE | 2019-03-15 15:46 | RAD REPORT ---
EXAM DESCRIPTION: CT - Head Brain Wo Cont - 03/15/2019 2:56 pm CLINICAL HISTORY: Headache, fall with head trauma 2 days earlier COMPARISON: CT head October 2017 TECHNIQUE: Axial 5 mm thick images of the head were obtained without IV contrast. All CT scans are performed using dose optimization technique as appropriate and may include automated exposure control or mA/KV adjustment according to patient size. FINDINGS: No intracranial hemorrhage, mass, edema or shift of mid-line structures. No acute infarcti on changes seen. No abnormal extra-axial fluid collections. Ventricles are normal. Intracranial findi ngs are similar to comparison. Mastoid air cells and visualized portions of the paranasal sinuses are clear. No acute bony findings. IMPRESSION: Negative non-contrast CT head examination. No significant change from comparison.
--- NOTE | 2019-03-15 15:50 | ER ---
Nurse's Notes [facility] Name: Prashanth Reardon Age: 38 yrs Sex: Male : 1980 Arrival Date: 03/15/2019 Time: 13:14 Bed 25 Private MD: Nixon Mayes Diagnosis: Headache Presentation: 03/15 13:28 Presenting complaint: Patient states: "I have a headache, but 2 days ago I fell out of [facility] bed and hit my head. Last night I woke up and I had blood coming out of my nose. Now I have a headache" Denies LOC, vomiting. Transition of care: patient was not received from another setting of care. Onset of symptoms was March 13, 2019. Risk Assessment: Do you want to hurt yourself or someone else? Patient reports no desire to harm self or others. Initial Sepsis Screen: Does the patient meet any 2 criteria? No. Patient's initial sepsis screen is negative. Does the patient have a suspected source of infection? No. Patient's initial sepsis screen is negative. Care prior to arrival: None. 13:28 Method Of Arrival: Ambulatory [facility] 13:28 Acuity: SAMINA 3 aj1 Triage Assessment: 13:30 Headache History: Denies prior headaches. General: Appears in no apparent distress. aj1 uncomfortable, Behavior is calm, cooperative, appropriate for age. Pain: Complains of pain in forehead and left temporal area Pain currently is 8 out of 10 on a pain scale. Pain began 2-3 days ago. Also complains of no other associated symptoms. Neuro: Level of Consciousness is awake, alert, obeys commands, Oriented to person, place, time, situation, Moves all extremities. Full function Gait is steady, Speech is normal, Facial symmetry appears normal. Cardiovascular: Patient's skin is warm and dry. Respiratory: Airway is patent Respiratory effort is even, unlabored, Respiratory pattern is regular, symmetrical. Historical: - Allergies: 13:30 Lisinopril; aj1 - Home Meds: 13:30 amlodipine 10 mg tab 1 tab once daily [Active]; aj1 - PMHx: 13:30 Martin's Palsy; Gout; Hypertension; Sleep Apnea; aj1 - Immunization history:: Flu vaccine is not up to date. - Social history:: Smoking status: Patient uses tobacco products, smokes one-half pack cigarettes per day. - Ebola Screening: : Patient denies travel to an Ebola-affected area in the 21 days before illness onset. Screenin:20 Abuse screen: Denies threats or abuse. Denies injuries from another. Nutritional aj screening: No deficits noted. Tuberculosis screening: No symptoms or risk factors identified. Fall Risk None identified. Assessment: 14:17 Reassessment: Patient noted to be sleeping in bed, snoring when I entered the room to aj assess his pain. After waking patient up, patient reports pain in his head to be 8/10. Patient given warm blankets for comfort. General: Appears in no apparent distress. comfortable, Behavior is calm, cooperative, appropriate for age. Pain: Complains of pain in face. Neuro: Level of Consciousness is awake, alert, obeys commands, Oriented to person, place, time, situation, Appropriate for age. Respiratory: Airway is patent Respiratory effort is even, unlabored, Respiratory pattern is regular, symmetrical. Derm: Skin is intact, is healthy with good turgor, Skin is pink, warm \\T\\ dry. normal. Vital Signs: 13:30 BP 120 / 83; Pulse 93; Resp 18; Temp 98.5; Pulse Ox 97% on R/A; Weight 158.3 kg (R); aj1 Height 6 ft. 2 in. (187.96 cm) (R); Pain 8/10; 15:59 BP 124 / 88; Pulse 89; Resp 18; Pulse Ox 99% ; rv 13:30 Body Mass Index 44.81 (158.30 kg, 187.96 cm) aj1 ED Course: 13:14 Patient arrived in ED. mr 13:14 Nixon Mayes MD is Private Physician. mr 13:29 Triage completed. aj1 13:30 Arm band placed on Patient placed in an exam room. aj1 14:02 Penelope Drummond, NEIL is Primary Nurse. aj 14:16 Bo Chavez MD is Attending Physician. ps1 14:20 Patient has correct armband on for positive identification. aj 14:55 CT completed. Patient tolerated procedure well. Patient moved back from CT. nj 14:57 CT Head Brain wo Cont In Process Unspecified. EDMS 15:48 Nixon Mayes MD is Referral Physician. ps1 15:58 No provider procedures requiring assistance completed. Patient did not have IV access rv during this emergency room visit. Administered Medications: No medications were administered Outcome: 15:50 Discharge ordered by . ps1 15:58 Discharged to home ambulatory. rv 15:58 Condition: good 15:58 Discharge instructions given to patient, Instructed on discharge instructions, follow up and referral plans. medication usage, Demonstrated understanding of instructions, follow-up care, medications, Prescriptions given X 1. 15:58 Patient left the ED. rv Signatures: Dispatcher [employer] EDMS Brittany Fuentes RN RN ajPenelope Castaneda RN RN aj Rivera, Taisha Rendon, Bo Quick MD MD ps1 Kevin Willams RN RN rv
--- NOTE | 2019-03-15 15:50 | EDPHYS ---
Physician Documentation [facility] Name: Prashanth Reardon Age: 38 yrs Sex: Male : 1980 Arrival Date: 03/15/2019 Time: 13:14 Bed 25 Private MD: Nixon Mayes ED Physician Bo Chavez HPI: 03/15 15:44 This 38 yrs old Black Male presents to ER via Ambulatory with complaints of Headache, ps1 Nose Bleed. 15:44 patient states that he fell while sleeping 2 nights ago and hit his head on the ps1 nightstand. Since then he has had intermittent headaches localized frontally without radiation. He states yesterday he noticed that he had a nosebleed. His pain is rated as moderate and described as throbbing. No medications taken that abates his symptoms. He does not have phono or photophobia. No nausea or vomiting. Ambulates without assistance and has no ataxia. . Historical: - Allergies: 13:30 Lisinopril; aj1 - Home Meds: 13:30 amlodipine 10 mg tab 1 tab once daily [Active]; aj1 - PMHx: 13:30 Martin's Palsy; Gout; Hypertension; Sleep Apnea; aj1 - Immunization history:: Flu vaccine is not up to date. - Social history:: Smoking status: Patient uses tobacco products, smokes one-half pack cigarettes per day. - Ebola Screening: : Patient denies travel to an Ebola-affected area in the 21 days before illness onset. ROS: 15:44 Constitutional: Negative for fever, chills, and weight loss, Eyes: Negative for injury, ps1 pain, redness, and discharge, Cardiovascular: Negative for chest pain, palpitations, and edema, Respiratory: Negative for shortness of breath, cough, wheezing, and pleuritic chest pain, Abdomen/GI: Negative for abdominal pain, nausea, vomiting, diarrhea, and constipation, MS/Extremity: Negative for injury and deformity, Skin: Negative for injury, rash, and discoloration, Psych: Negative for depression, anxiety, suicide ideation, homicidal ideation, and hallucinations. 15:44 ENT: Positive for nose bleed. 15:44 Neuro: Positive for headache. Exam: 15:44 Constitutional: This is a well developed, well nourished patient who is awake, alert, ps1 and in no acute distress. Head/Face: Normocephalic, atraumatic. Eyes: Pupils equal round and reactive to light, extra-ocular motions intact. Lids and lashes normal. Conjunctiva and sclera are non-icteric and not injected. ENT: Nares patent. No nasal discharge, no septal abnormalities noted. Tympanic membranes are normal and external auditory canals are clear. Oropharynx with no redness, swelling, or masses, exudates, or evidence of obstruction, uvula midline. Mucous membranes moist. Chest/axilla: Normal chest wall appearance and motion. Nontender with no deformity. No lesions are appreciated. Cardiovascular: Regular rate and rhythm. No gallops, murmurs, or rubs. Normal PMI, no JVD. No pulse deficits. Respiratory: Lungs have equal breath sounds bilaterally, clear to auscultation and percussion. No rales, rhonchi or wheezes noted. No increased work of breathing, no retractions or nasal flaring. Abdomen/GI: Soft, non-tender, with normal bowel sounds. No distension or tympany. No guarding or rebound. No evidence of tenderness throughout. Skin: Warm, dry with normal turgor. Normal color with no rashes, no lesions, and no evidence of cellulitis. MS/ Extremity: Pulses equal, no cyanosis. Neurovascular intact. Full, normal range of motion. Neuro: Awake and alert, GCS 15, oriented to person, place, time, and situation. Cranial nerves II-XII grossly intact. Sensory grossly intact. Psych: Awake, alert, with orientation to person, place and time. Behavior, mood, and affect are within normal limits. Vital Signs: 13:30 BP 120 / 83; Pulse 93; Resp 18; Temp 98.5; Pulse Ox 97% on R/A; Weight 158.3 kg (R); aj1 Height 6 ft. 2 in. (187.96 cm) (R); Pain 8/10; 15:59 BP 124 / 88; Pulse 89; Resp 18; Pulse Ox 99% ; rv 13:30 Body Mass Index 44.81 (158.30 kg, 187.96 cm) aj1 MDM: 14:40 Patient medically screened. ps1 15:51 Data reviewed: vital signs, nurses notes, lab test result(s), radiologic studies, CT ps1 scan, and as a result, I will discharge patient. Counseling: I had a detailed discussion with the patient and/or guardian regarding: the historical points, exam findings, and any diagnostic results supporting the discharge/admit diagnosis, lab results, radiology results, the need for outpatient follow up, to return to the emergency department if symptoms worsen or persist or if there are any questions or concerns that arise at home. 03/15 14:32 Order name: CT Head Brain wo Cont; Complete Time: 18:02 ps1 Administered Medications: No medications were administered Disposition: 03/15/19 15:50 Discharged to Home. Impression: Headache. - Condition is Stable. - Discharge Instructions: Migraine Headache. - Prescriptions for Anaprox DS 550 mg Oral Tablet - take 1 tablet by ORAL route every 12 hours As needed; 20 tablet. - Medication Reconciliation Form, Thank You Letter, Antibiotic Education, Prescription Opioid Use form. - Follow up: Nixon Mayes MD; When: As needed; Reason: Further diagnostic work-up, Recheck today's complaints, Continuance of care, Re-evaluation by your physician. Follow up: Emergency Department; When: As needed; Reason: Fever > 102 F, Trouble breathing, Worsening of condition. - Problem is new. - Symptoms are unchanged. Signatures: Dispatcher [employer] EDMS Brittany Fuentes RN RN aj1 Bo Chavez MD MD ps1 Kevin Willams RN RN rv Corrections: (The following items were deleted from the chart) 15:58 15:50 03/15/2019 15:50 Discharged to Home. Impression: Headache. Condition is Stable. rv Forms are Medication Reconciliation Form, Thank You Letter, Antibiotic Education, Prescription Opioid Use. Follow up: Nixon Mayes; When: As needed; Reason: Further diagnostic work-up, Recheck today's complaints, Continuance of care, Re-evaluation by your physician. Follow up: Emergency Department; When: As needed; Reason: Fever > 102 F, Trouble breathing, Worsening of condition. Problem is new. Symptoms are unchanged. ps1
== END 2019-03-15 15:58 | disposition home or self-care (01) ==
LOC: ER 13:12
DX: R51 Headache (principal); M10.9 Gout, unspecified; I10 Essential (primary) hypertension; Z88.8 Allergy status to other drugs, medicaments and biological substances; F17.210 Nicotine dependence, cigarettes, uncomplicated
CPT/HCPCS: 70450; 99284